=== PATIENT | male | born 1995 | race Two or more races ===

== ENCOUNTER 2021-04-23 14:40 | Emergency (ER) | payer SELFPAY ==
[~2021-04-23] VITALS: Ht 165.1 cm; Wt 90.0 kg
[2021-04-23] MEDS ORDERED: LIDOCAINE HCL/PF 1% 10 MG/ML 5ML VIAL INFIL ONE (15:45)
[2021-04-23] MEDS ORDERED: IBUP-2028 MT (16:05)
[2021-04-23] MEDS ORDERED: CEPH500C2 MT (16:05)
[2021-04-23 16:31] VITALS: BP 120/68
== END 2021-04-23 16:32 | disposition home or self-care (01) ==
LOC: ER 14:51
DX: L05.01 Pilonidal cyst with abscess (principal)
CPT/HCPCS: 10060; 99284; J3490; Z7610; A4315

== ENCOUNTER 2022-08-15 12:34 | Emergency (ER) | payer MEDICAID ==
[~2022-08-15] VITALS: Ht 165.1 cm; Wt 95.0 kg
[~2022-08-15 12:34] MED LIST: CEPH500C2 MT; IBUP-2028 MT
[2022-08-15] MEDS ORDERED: LIDOCAINE HCL 1% 20ML VIAL (Pyxis) INJ INFIL ONE (14:00)
[2022-08-15] MEDS ORDERED: LIDOCAINE HCL/EPINEPHRINE 1%-EPI 1:100,000 20 ML VIAL INFIL ONE (14:00)
[2022-08-15] MEDS ORDERED: BACITRACIN ZINC OINT UDPKT TOP ONE (14:00)
[2022-08-15] MEDS ORDERED: LIDOCAINE HCL 1% 10 MG/ML 10ML VIAL INJ ONE (14:15)
[2022-08-15] MEDS ORDERED: SULF1TAB48 MT (16:49)
[2022-08-15] MEDS ORDERED: SULFAMETHOXAZOLE/TRIMETHOPRIM 800/160MG TABLET PO ONE (17:00)
[2022-08-15 17:14] VITALS: BP 154/75
== END 2022-08-15 17:15 | disposition home or self-care (01) ==
LOC: ER 12:34
DX: L05.91 Pilonidal cyst without abscess (principal); Z00.00 Encounter for general adult medical examination without abnormal findings
CPT/HCPCS: 10060; 99283; J3490; Z7610

== ENCOUNTER 2023-10-03 00:20 | Emergency (ER) | payer MEDICAID ==
[~2023-10-03] VITALS: Ht 167.6 cm; Wt 96.0 kg
[~2023-10-03 00:20] MED LIST changes: +SULF1TAB48 MT
[2023-10-03 00:23] VITALS: BP 135/86; PULSE 107; RESP 20; TEMP 97.9; O2SAT 99
[2023-10-03] MEDS ORDERED: HIBIL TP (01:46)
[2023-10-03] MEDS ORDERED: SULF1TAB48 MT (01:46)
[2023-10-03] MEDS ORDERED: CEPH500T MT (01:46)
== END 2023-10-03 02:14 | disposition home or self-care (01) ==
LOC: ER 00:53
DX: L05.01 Pilonidal cyst with abscess (principal)
CPT/HCPCS: 10060; 99283; Z7610 ×5

== ENCOUNTER 2024-02-14 03:13 | Emergency (ER) | payer MEDICAID ==
[~2024-02-14] VITALS: Ht 170.2 cm; Wt 98.0 kg
[~2024-02-14 03:13] MED LIST changes: +CEPH500T MT; +HIBIL TP
[2024-02-14 03:47] VITALS: O2SAT 99
[2024-02-14] MEDS: LIDOCAINE HCL/PF 1% 10 MG/ML 5ML VIAL INFIL ONE (06:15)
[2024-02-14] MEDS: TETANUS, DIPHTHERIA, PERTUSSIS VAC/PF 0.5ML (>10YR OLD) IM ONE (06:40)
[2024-02-14 09:22] VITALS: BP 130/73; PULSE 80; RESP 18; TEMP 98.7
[2024-02-16] MEDS ORDERED: ACET-2708 PO (06:06)
== END 2024-02-14 09:35 | disposition home or self-care (01) ==
LOC: ER 03:13
DX: L05.91 Pilonidal cyst without abscess (principal)
CPT/HCPCS: 90715; 10080; 90471; 99283; J3490; Z7610 ×2